=== PATIENT | female | born 1950 | race Hispanic/Latino ===

== ENCOUNTER → 2017-10-28 | Outpatient (CLI) | payer MEDICARE ==
[~2017-10-28] MED LIST: ACET-2041 PO; ACET-66 PO; AMLO5TAB2 PO; ASPI-1197 PO; BIOT10005 PO; CHOL50004 PO; ESTR1TAB17 PO; GABA-529 PO; IBUP-2071 PO; LORA10TA7 PO; LOSA100T29 PO; PANT40TA PO; POTA10TA PO; SPIR50TA3 PO
== END | disposition home or self-care (01) ==
LOC: RAH 12:38
PROVIDERS: ATTEND Internal Medicine Endocrinology, Diabetes & Metabolism
DX: E04.2 Nontoxic multinodular goiter (principal)
CPT/HCPCS: 36415; 76536; 84439; 84443

== ENCOUNTER → 2018-01-29 | Outpatient (CLI) | payer MEDICARE ==
[~2018-01-29] MED LIST changes: -SPIR50TA3 PO; +SPIR50TA5 PO
[2018-01-29 11:19] LABS: BASOPHILS % (AUTO) 0.9 % (0.0-5.0); EOSINOPHILS % (AUTO) 2.5 % (0.0-8.0); HEMATOCRIT 41.3 % (36-48); LYMPHOCYTES % (AUTO) 28.3 % (21.0-51.0); MEAN CORPUSCULAR HEMOGLOBIN 30.4 pg (27.0-33.0); MEAN CORPUSCULAR HGB CONC 33.7 g/dL (32.0-36.0); MEAN CORPUSCULAR VOLUME 90.3 fL (79-99); MONOCYTES % (AUTO) 11.3 % (3.0-13.0); PLATELET COUNT (AUTO) 222 K/uL (130-400); RED BLOOD CELL COUNT(AUTO) 4.57 MIL/uL (4.00-5.50); RED CELL DISTRIBUTION WIDTH 13.9 % (11.0-15.5); WHITE BLOOD COUNT (AUTO) 6.5 K/uL (4.8-10.8)
[2018-01-29 12:04] LABS: ALBUMIN 4.1 g/dL (3.5-5.0); BILIRUBIN,TOTAL 0.3 mg/dL (0.2-1.0); POTASSIUM 3.9 mmol/L (3.5-5.1); THYROID STIMULATING HORMONE 1.69 uIU/mL (0.36-3.74); TOTAL PROTEIN, SERUM 8.2 g/dL (6.0-8.3)
== END ==
LOC: LAB 09:59
PROVIDERS: ATTEND Internal Medicine
DX: I10 Essential (primary) hypertension (principal); E11.9 Type 2 diabetes mellitus without complications; E87.6 Hypokalemia
CPT/HCPCS: 36415; 80053; 80061; 84443; 85025

== ENCOUNTER → 2018-02-17 | Outpatient (CLI) | payer MEDICARE | END | disposition home or self-care (01) | LOC: RAH 13:22 | PROVIDERS: ATTEND Internal Medicine | DX: Z12.31 Encounter for screening mammogram for malignant neoplasm of breast (principal) | CPT/HCPCS: 77067 ==

== ENCOUNTER → 2018-03-26 | Outpatient (CLI) | payer MEDICARE | END | disposition home or self-care (01) | LOC: LAB 09:34 | PROVIDERS: ATTEND Internal Medicine | DX: R00.1 Bradycardia, unspecified (principal); M25.50 Pain in unspecified joint; M85.80 Other specified disorders of bone density and structure, unspecified site; I95.9 Hypotension, unspecified | CPT/HCPCS: 36415; 85651; 86038; 86140; 86215; 86235; 86431 ==

== ENCOUNTER → 2018-07-28 | Outpatient (CLI) | payer MEDICARE ==
[~2018-07-28] MED LIST changes: -ACET-2041 PO; -AMLO5TAB2 PO; +AMLO5TAB7 PO; -IBUP-2071 PO; +LOSA100T20 PO; -LOSA100T29 PO; +TRAM50TA4 PO
[2018-07-28 13:50] LABS: ALBUMIN 4.2 g/dL (3.5-5.0); BILIRUBIN,TOTAL 0.3 mg/dL (0.2-1.0); CREATININE 1.3 mg/dL (0.5-1.5); POTASSIUM 4.4 mmol/L (3.5-5.1); TOTAL PROTEIN, SERUM 8.4 g/dL (6.0-8.3)
[2018-07-29 09:18] LABS: VITAMIN D, 25-HYDROXY 34.1 ng/mL (30.0-100.0)
== END | disposition home or self-care (01) ==
LOC: LAB 13:00
PROVIDERS: ATTEND Internal Medicine
DX: M35.3 Polymyalgia rheumatica (principal); R20.8 Other disturbances of skin sensation; I10 Essential (primary) hypertension; K21.9 Gastro-esophageal reflux disease without esophagitis; E78.5 Hyperlipidemia, unspecified; Z79.899 Other long term (current) drug therapy
CPT/HCPCS: 36415; 80053; 82306; 82607

== ENCOUNTER → 2018-08-30 | Outpatient (CLI) | payer MEDICARE ==
[2018-08-30 11:42] LABS: CREATININE 1.2 mg/dL (0.5-1.5)
== END | disposition home or self-care (01) ==
LOC: LAB 10:47
PROVIDERS: ATTEND Internal Medicine
DX: M54.5 Low back pain (principal); Q61.9 Cystic kidney disease, unspecified; K21.9 Gastro-esophageal reflux disease without esophagitis
CPT/HCPCS: 36415; 82565; 84520

== ENCOUNTER → 2018-09-08 | Outpatient (CLI) | payer MEDICARE ==
[~2018-09-08] MED LIST changes: +IOHEXOL-350 75 ML VIAL IV ONE
== END | disposition home or self-care (01) ==
LOC: RAH 09:41
PROVIDERS: ATTEND Internal Medicine
DX: N28.1 Cyst of kidney, acquired (principal); K57.90 Diverticulosis of intestine, part unspecified, without perforation or abscess without bleeding; I70.90 Unspecified atherosclerosis; M47.895 Other spondylosis, thoracolumbar region; K21.9 Gastro-esophageal reflux disease without esophagitis
CPT/HCPCS: 74178; Q9967

== ENCOUNTER → 2018-09-29 | Outpatient (CLI) | payer MEDICARE ==
[~2018-09-29] MED LIST changes: -IOHEXOL-350 75 ML VIAL IV ONE
== END | disposition home or self-care (01) ==
LOC: RAH 14:03
PROVIDERS: ATTEND Internal Medicine
DX: I65.23 Occlusion and stenosis of bilateral carotid arteries (principal)
CPT/HCPCS: 93880

== ENCOUNTER → 2019-02-21 | Outpatient (CLI) | payer MEDICARE, OTHER ==
[~2019-02-21] MED LIST changes: -AMLO5TAB7 PO; +AMLO5TAB9 PO; -LOSA100T20 PO; +LOSA100T58 PO
== END | disposition home or self-care (01) ==
LOC: RAH 11:51
PROVIDERS: ATTEND Internal Medicine
DX: Z12.31 Encounter for screening mammogram for malignant neoplasm of breast (principal)
CPT/HCPCS: 77067

== ENCOUNTER → 2019-04-13 | Outpatient (CLI) | payer MEDICARE, OTHER ==
[2019-04-13 12:47] LABS: CREATININE 1.1 mg/dL (0.5-1.5)
== END | disposition home or self-care (01) ==
LOC: LAB 11:38
PROVIDERS: ATTEND Internal Medicine
DX: R92.2 Inconclusive mammogram (principal)
CPT/HCPCS: 36415; 82565; 84520

== ENCOUNTER → 2019-04-18 | Outpatient (CLI) | payer MEDICARE, OTHER ==
[~2019-04-18] MED LIST changes: +GADODIAMIDE 10 MMOL/20 ML VIAL IV ONE
== END | disposition home or self-care (01) ==
LOC: RAH 11:19
PROVIDERS: ATTEND Internal Medicine
DX: N60.01 Solitary cyst of right breast (principal); N60.02 Solitary cyst of left breast
CPT/HCPCS: 77049; A9579

== ENCOUNTER → 2019-05-16 | Outpatient (CLI) | payer MEDICARE, OTHER ==
[~2019-05-16] MED LIST changes: -GADODIAMIDE 10 MMOL/20 ML VIAL IV ONE
== END | disposition home or self-care (01) ==
LOC: RAH 12:36
PROVIDERS: ATTEND Internal Medicine Endocrinology, Diabetes & Metabolism
DX: E04.2 Nontoxic multinodular goiter (principal)
CPT/HCPCS: 76536

== ENCOUNTER 2019-05-31 13:00 | Inpatient (IN) | payer MEDICARE, OTHER | END 2019-06-04 16:15 | disposition home or self-care (01) | LOC: EDH 13:00 → EDHIP 18:41 → 3AH 21:56 | DX: K57.32 Diverticulitis of large intestine without perforation or abscess without bleeding (principal); E44.0 Moderate protein-calorie malnutrition; E66.01 Morbid (severe) obesity due to excess calories; I10 Essential (primary) hypertension; N28.1 Cyst of kidney, acquired ==

== ENCOUNTER → 2019-05-31 | Outpatient (CLI) | payer MEDICARE, OTHER ==
[~2019-05-31] MED LIST changes: +IOHEXOL-350 75 ML VIAL IV ONE; +LEVO500T89 PO; +METR-152 PO; +ONDA4TAB4 PO; +PANT40TA25 PO; +TRAZ-253 PO
[2019-05-31 12:51] LABS: BASOPHILS % (AUTO) 0.4 % (0.0-5.0); EOSINOPHILS % (AUTO) 0.3 % (0.0-8.0); HEMATOCRIT 38.6 % (36-48); MEAN CORPUSCULAR HEMOGLOBIN 30.7 pg (27.0-33.0); MEAN CORPUSCULAR HGB CONC 33.4 g/dL (32.0-36.0); MEAN CORPUSCULAR VOLUME 91.8 fL (79-99); MONOCYTES % (AUTO) 9.8 % (3.0-13.0); NEUTROPHILS % (AUTO) 70.5 % (40.0-77.0); PLATELET COUNT (AUTO) 199 K/uL (130-400); RED CELL DISTRIBUTION WIDTH 14.2 % (11.0-15.5); WHITE BLOOD COUNT (AUTO) 13.7 K/uL (4.8-10.8)
[2019-05-31 13:08] LABS: CREATININE 1.1 mg/dL (0.5-1.5)
[2019-05-31 13:14] LABS: ALBUMIN 3.7 g/dL (3.5-5.0); BILIRUBIN,TOTAL 0.4 mg/dL (0.2-1.0); TOTAL PROTEIN, SERUM 7.9 g/dL (6.0-8.3)
== END | disposition home or self-care (01) ==
LOC: RAH 12:15
PROVIDERS: ATTEND Internal Medicine
DX: K57.32 Diverticulitis of large intestine without perforation or abscess without bleeding (principal); N28.1 Cyst of kidney, acquired; M47.815 Spondylosis without myelopathy or radiculopathy, thoracolumbar region
CPT/HCPCS: 36415; 74018; 74178; 80053; 85025; Q9967

== ENCOUNTER 2019-08-01 09:19 | Observation (INO) | payer MEDICARE, OTHER ==
[~2019-08-01] VITALS: Ht 154.9 cm; Wt 59.9 kg
[~2019-08-01 09:19] MED LIST changes: -ACET-66 PO; -IOHEXOL-350 75 ML VIAL IV ONE; -LORA10TA7 PO; -PANT40TA PO
[2019-08-01 10:40] LABS: BASOPHILS % (AUTO) 0.6 % (0.0-5.0); EOSINOPHILS % (AUTO) 0.3 % (0.0-8.0); HEMATOCRIT 41.4 % (36-48); LYMPHOCYTES % (AUTO) 16.2 % (21.0-51.0); MEAN CORPUSCULAR HEMOGLOBIN 31.3 pg (27.0-33.0); MEAN CORPUSCULAR HGB CONC 33.9 g/dL (32.0-36.0); MEAN CORPUSCULAR VOLUME 92.4 fL (79-99); MONOCYTES % (AUTO) 8.5 % (3.0-13.0); NEUTROPHILS % (AUTO) 74.4 % (40.0-77.0); PLATELET COUNT (AUTO) 200 K/uL (130-400); RED BLOOD CELL COUNT(AUTO) 4.48 MIL/uL (4.00-5.50); RED CELL DISTRIBUTION WIDTH 14.4 % (11.0-15.5); WHITE BLOOD COUNT (AUTO) 9.3 K/uL (4.8-10.8)
[2019-08-01 10:42] LABS: APPEARANCE,URINE Clear (CLEAR); BILIRUBIN,URINE Negative (NEGATIVE); COLOR,URINE Yellow (YELLOW); GLUCOSE, URINE (UA) Negative (NEGATIVE); KETONES,URINE Negative (NEGATIVE); LEUKOCYTE ESTERASE ,URINE Trace (NEGATIVE); NITRATE,URINE Negative (NEGATIVE); OCCULT BLOOD,URINE Negative (NEGATIVE); PH,URINE 5.5 (5.0-8.0); PROTEIN,URINE Negative (NEGATIVE)
[2019-08-01 10:54] LABS: CREATININE 1.2 mg/dL (0.5-1.5); POTASSIUM 4.4 mmol/L (3.5-5.1)
[2019-08-01 10:59] LABS: ALBUMIN 3.9 g/dL (3.5-5.0); BILIRUBIN,TOTAL 0.4 mg/dL (0.2-1.0); TOTAL PROTEIN, SERUM 8.5 g/dL (6.0-8.3)
[2019-08-01 11:21] LABS: BACTERIA,URINE Rare /HPF (None Seen); MUCUS,URINE Rare LPF (None Seen); RBC,URINE 0-1 /HPF (0-1); SQUAMOUS EPITHELIAL CELL,UR Rare /HPF (0-2); WBC,URINE 0-1 /HPF (0-1)
[2019-08-01] MEDS ORDERED: SODIUM CHLORIDE 0.9% 1000ML 1,000 ML IV ONE ×2 (12:22→14:22)
[2019-08-01] MEDS ORDERED: LEVOFLOXACIN 500 MG/D5W 100 ML 100 ML ONE (12:35)
[2019-08-01] MEDS ORDERED: METRONIDAZOLE 500MG/100ML BAG 100 ML ONE (12:35)
[2019-08-01 12:51] LABS: INR 0.9 (0.85-1.15); PARTIAL THROMBOPLASTIN TIME 26.6 SEC (26.3-35.5)
[2019-08-01 13:11] LABS: PROTHROMBIN TIME 9.3 SEC (9.6-11.6)
[2019-08-01] MEDS: ZOSYN 3.375GM+NS 50ML 50 ML IV SCH ×2 (13:30→20:34)
[2019-08-01] MEDS ORDERED: ACETAMINOPHEN 325 MG TAB PO PRN (13:30)
[2019-08-01] MEDS ORDERED: ONDANSETRON HCL 4 MG/2 ML VIAL IVP PRN (13:30)
[2019-08-01 15:15] VITALS: BP 122/54
[2019-08-01] MEDS ORDERED: PANT20TA12 PO (16:16)
[2019-08-01] MEDS ORDERED: MELA10TA3 PO (16:16)
[2019-08-01] MEDS ORDERED: ESTR1TAB17 PO (16:16)
[2019-08-01] MEDS ORDERED: AMLO10TA7 PO (16:16)
[2019-08-01] MEDS ORDERED: GABA-531 PO (16:16)
[2019-08-01] MEDS: MORPHINE SULFATE 2 MG/ML 1ML SYG IVP PRN ×2 (18:08→20:14)
[2019-08-01 19:20] VITALS: BP 143/50
[2019-08-01] MEDS: SODIUM CHLORIDE 0.9% 1000ML 1,000 ML IV SCH (20:15)
[2019-08-01] MEDS ORDERED: MORPHINE SULFATE 4 MG/1ML SYG IV PRN (20:15)
[2019-08-01] MEDS ORDERED: MORPHINE SULFATE 4 MG/1ML SYG IVP PRN (20:15)
--- NOTE | 2019-08-01 21:00 | NUR ---
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
[2019-08-01 23:25] VITALS: BP 116/60
--- NOTE | 2019-08-01 23:36 | NUR ---
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
[2019-08-01] MEDS ORDERED: HYDROMORPHONE HCL 2 MG/ML VIAL IVP PRN (23:45)
[2019-08-02] MEDS ORDERED: HYDROMORPHONE HCL 0.5 MG/0.5 ML ML ONE (00:06)
[2019-08-02] MEDS: SODIUM CHLORIDE 0.9% 1000ML 1,000 ML IV SCH (00:16)
[2019-08-02 03:25] VITALS: BP 141/57
--- NOTE | 2019-08-02 03:32 | NUR ---
RELIEF Pt vebalized relief of pain with Dilaudid IV.
[2019-08-02] MEDS: ZOSYN 3.375GM+NS 50ML 50 ML IV SCH ×2 (05:44→13:38)
[2019-08-02 05:47] LABS: BASOPHILS % (AUTO) 0.6 % (0.0-5.0); EOSINOPHILS % (AUTO) 0.9 % (0.0-8.0); HEMATOCRIT 35.2 % (36-48); MEAN CORPUSCULAR HEMOGLOBIN 30.9 pg (27.0-33.0); MEAN CORPUSCULAR HGB CONC 33.2 g/dL (32.0-36.0); MEAN CORPUSCULAR VOLUME 93.1 fL (79-99); MONOCYTES % (AUTO) 11.7 % (3.0-13.0); NEUTROPHILS % (AUTO) 55.8 % (40.0-77.0); NUCLEATED RED BLOOD CELLS 0.1 % (0.0-0.19); PLATELET COUNT (AUTO) 181 K/uL (130-400); RED BLOOD CELL COUNT(AUTO) 3.78 MIL/uL (4.00-5.50); RED CELL DISTRIBUTION WIDTH 14.2 % (11.0-15.5); WHITE BLOOD COUNT (AUTO) 5.6 K/uL (4.8-10.8)
[2019-08-02 07:06] LABS: ERYTHROCYTE SEDIMENTATION RATE 49 MM/HR (0-30)
[2019-08-02 07:30] VITALS: BP 120/70
--- NOTE | 2019-08-02 08:00 | NUR ---
AM SHIFT ASSESSMENT. DENIES ABDOMINAL DISCOMFORT AT THIS TIME.
[2019-08-02] MEDS ORDERED: AMOX-429 PO (09:12)
[2019-08-02] MEDS ORDERED: TRAMADOL HCL 50 MG TABLET PO PRN (09:15)
--- NOTE | 2019-08-02 09:21 | NUR ---
DR. WASHBURN IN TO SEE PT. POSS. DISCHARGE THIS EVENING IF TOLERATED LIQUID DIET.
[2019-08-02 11:00] VITALS: BP 115/59
--- NOTE | 2019-08-02 14:00 | NUR ---
HAS BEEN UP WALKING AND STATES PASSING FLATUS AND ACTUALLY FEELS MUCH BETTER
--- NOTE | 2019-08-02 17:45 | NUR ---
DISCHARGED NOW USING TEACH BACK. TOLERATED LIQUID DIET WELL. 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 ALREADY HAS TRAMADOL AT HOME IF SHE NEEDS IT. VERBALIZED UNDERSTANDING OF ALL INST. GIVEN.
== END 2019-08-02 18:00 | disposition home or self-care (01) ==
LOC: EDH 09:19 → EDHIP 12:59 → 3CH 15:23
PROVIDERS: ADMIT Internal Medicine; ATTEND Internal Medicine
DX: K57.32 Diverticulitis of large intestine without perforation or abscess without bleeding (principal); I10 Essential (primary) hypertension; R94.31 Abnormal electrocardiogram [ECG] [EKG]; Z90.710 Acquired absence of both cervix and uterus; Z79.82 Long term (current) use of aspirin; Z79.899 Other long term (current) drug therapy; Z88.2 Allergy status to sulfonamides; Z88.8 Allergy status to other drugs, medicaments and biological substances; Z91.048 Other nonmedicinal substance allergy status
CPT/HCPCS: 36415 ×2; 71045; 74176; 80053; 81001; 82150; 82550; 83690; 84145 ×2; 84484; 85025 ×2; 85610; 85651; 85730; 86140; 93005; 96365; 96366 ×2; 96375; 96376; 99284; G0378 ×29; J1170; J1956; J2405; J2543 ×3; J3490; J7030 ×3

== ENCOUNTER → 2019-08-17 | Outpatient (CLI) | payer MEDICARE, OTHER ==
[~2019-08-17] MED LIST changes: +AMLO10TA7 PO; -AMLO5TAB9 PO; +AMOX-429 PO; -BIOT10005 PO; -GABA-529 PO; +GABA-531 PO; -LEVO500T89 PO; +MELA10TA3 PO; -METR-152 PO; -ONDA4TAB4 PO; +PANT20TA12 PO; -PANT40TA25 PO
== END | disposition home or self-care (01) ==
LOC: RAH 09:05
PROVIDERS: ATTEND Surgery
DX: N28.1 Cyst of kidney, acquired (principal)
CPT/HCPCS: 76770

== ENCOUNTER → 2019-09-22 | Outpatient (CLI) | payer MEDICARE, OTHER ==
[~2019-09-22] MED LIST changes: +IOHEXOL-350 75 ML VIAL IV ONE
== END | disposition home or self-care (01) ==
LOC: RAH 16:08
PROVIDERS: ATTEND Internal Medicine
DX: K65.1 Peritoneal abscess (principal)
CPT/HCPCS: 74177; Q9967

== ENCOUNTER → 2019-12-05 | Outpatient (CLI) | payer MEDICARE ==
[~2019-12-05] MED LIST changes: +IOHEXOL 350 MG/ML 100ML INFUS..BTL IV ONE; -IOHEXOL-350 75 ML VIAL IV ONE
== END | disposition home or self-care (01) ==
LOC: RAH 07:57
PROVIDERS: ATTEND Surgery
DX: N28.1 Cyst of kidney, acquired (principal); K57.90 Diverticulosis of intestine, part unspecified, without perforation or abscess without bleeding; J98.11 Atelectasis; Z90.49 Acquired absence of other specified parts of digestive tract; Z90.710 Acquired absence of both cervix and uterus; Z93.3 Colostomy status
CPT/HCPCS: 74178; Q9967

== ENCOUNTER → 2020-05-14 | Outpatient (CLI) | payer MEDICARE ==
[~2020-05-14] MED LIST changes: -IOHEXOL 350 MG/ML 100ML INFUS..BTL IV ONE
== END | disposition home or self-care (01) ==
LOC: RAH 10:37
PROVIDERS: ATTEND Internal Medicine Endocrinology, Diabetes & Metabolism
DX: Z12.31 Encounter for screening mammogram for malignant neoplasm of breast (principal); E04.2 Nontoxic multinodular goiter; N64.89 Other specified disorders of breast
CPT/HCPCS: 76536; 77067

== ENCOUNTER → 2020-12-26 | Outpatient (CLI) | payer MEDICARE ==
[~2020-12-26] MED LIST changes: +AMLO-258 PO; -AMLO10TA7 PO; -PANT20TA12 PO; +PANT20TA18 PO
== END | disposition home or self-care (01) ==
LOC: RAH 13:29
PROVIDERS: ATTEND Internal Medicine
DX: R52 Pain, unspecified (principal); W19.XXXA Unspecified fall, initial encounter
CPT/HCPCS: 72170; 72220

== ENCOUNTER → 2020-12-31 | Outpatient (CLI) | payer MEDICARE, OTHER | END | disposition home or self-care (01) | LOC: RAH 13:46 | PROVIDERS: ATTEND Orthopaedic Surgery | DX: M75.101 Unspecified rotator cuff tear or rupture of right shoulder, not specified as traumatic (principal); M25.511 Pain in right shoulder | CPT/HCPCS: 73221 ==

== ENCOUNTER → 2021-05-20 | Outpatient (CLI) | payer MEDICARE, OTHER | END | disposition home or self-care (01) | LOC: RAH 08:58 | PROVIDERS: ATTEND Surgery | DX: Z93.3 Colostomy status (principal) | CPT/HCPCS: 74270 ==

== ENCOUNTER → 2022-01-15 | Outpatient (CLI) | payer MEDICARE, OTHER | END | disposition home or self-care (01) | LOC: RAH 11:26 | PROVIDERS: ATTEND Internal Medicine | DX: S80.02XA Contusion of left knee, initial encounter (principal); M17.12 Unilateral primary osteoarthritis, left knee; M25.562 Pain in left knee; X58.XXXA Exposure to other specified factors, initial encounter; Y93.89 Activity, other specified; Y92.89 Other specified places as the place of occurrence of the external cause; Y99.8 Other external cause status | CPT/HCPCS: 73560 ==

== ENCOUNTER → 2022-02-11 | Outpatient (CLI) | payer MEDICARE, OTHER | LOC: RAH 13:44 | PROVIDERS: ATTEND Internal Medicine | DX: M25.511 Pain in right shoulder (principal); M25.512 Pain in left shoulder | CPT/HCPCS: 73030; 73080 ==

== ENCOUNTER → 2022-05-20 | Outpatient (CLI) | payer MEDICARE, OTHER ==
[2022-05-20 12:58] LABS: T4 (THYROXINE) 9.3 ug/dL (4.7-13.3); THYROID STIMULATING HORMONE 1.47 uIU/mL (0.36-3.74)
== END | disposition home or self-care (01) ==
LOC: RAH 11:50
PROVIDERS: ATTEND Internal Medicine Endocrinology, Diabetes & Metabolism
DX: E04.2 Nontoxic multinodular goiter (principal)
CPT/HCPCS: 36415; 76536; 84436; 84443

== ENCOUNTER 2023-05-04 05:51 | Observation (INO) | payer MEDICARE, OTHER ==
[2023-05-01 12:54] LABS: BASOPHILS % (AUTO) 0.5 % (0.0-5.0); EOSINOPHILS % (AUTO) 0.8 % (0.0-8.0); HEMATOCRIT 45.1 % (36-48); MEAN CORPUSCULAR HEMOGLOBIN 29.6 pg (27.0-33.0); MEAN CORPUSCULAR HGB CONC 31.9 g/dL (32.0-36.0); MEAN CORPUSCULAR VOLUME 92.6 fL (79-99); MONOCYTES % (AUTO) 10.3 % (3.0-13.0); NEUTROPHILS % (AUTO) 55.1 % (40.0-77.0); PLATELET COUNT (AUTO) 187 K/uL (130-400); RED BLOOD CELL COUNT(AUTO) 4.87 MIL/uL (4.00-5.50); RED CELL DISTRIBUTION WIDTH 13.8 % (11.0-15.5); WHITE BLOOD COUNT (AUTO) 6.6 K/uL (4.8-10.8)
[2023-05-01 12:56] LABS: APPEARANCE,URINE CLEAR (CLEAR); BILIRUBIN,URINE NEGATIVE (NEGATIVE); COLOR,URINE YELLOW (YELLOW); GLUCOSE, URINE (UA) NEGATIVE (NEGATIVE); KETONES,URINE NEGATIVE (NEGATIVE); LEUKOCYTE ESTERASE ,URINE NEGATIVE Leu/uL (NEGATIVE); NITRATE,URINE NEGATIVE (NEGATIVE); OCCULT BLOOD,URINE NEGATIVE (NEGATIVE); PROTEIN,URINE 20 mg/dL (NEGATIVE); UROBILINOGEN,URINE 0.2 mg/dL (0.2-1.0)
[2023-05-01 12:58] LABS: MUCUS,URINE RARE LPF (None Seen); RBC,URINE 0-1 /HPF (0-1); SQUAMOUS EPITHELIAL CELL,UR RARE /HPF (0-2)
[2023-05-01 13:07] LABS: ALBUMIN 3.9 g/dL (3.5-5.0); CARBON DIOXIDE 27 mmol/L (21-32); CHLORIDE 101 mmol/L (101-111); CREATININE 0.8 mg/dL (0.5-1.5); CRP QUANTITATIVE < 2.00 mg/L (0.00-9.0); GLOMERULAR FILTR. RATE CALC 77 mL/min (>90); GLUCOSE,RANDOM 100 mg/dL (70-105); POTASSIUM 3.5 mmol/L (3.5-5.1); SODIUM SERUM 139 mmol/L (136-145); UREA NITROGEN, BLOOD 11 mg/dL (7-18)
[2023-05-01 13:10] LABS: INR 0.93 (0.85-1.15); PROTHROMBIN TIME 10.1 SEC (9.6-11.6)
[2023-05-01 13:11] LABS: PARTIAL THROMBOPLASTIN TIME 27.2 SEC (26.3-35.5)
[2023-05-01 13:28] VITALS: BP 163/73; PULSE 73; RESP 17
[2023-05-04] VITALS (24 sets, daily range): BP systolic 97–162; BP diastolic 50–96; PULSE 71–107; RESP 12–20; O2SAT 97
[~2023-05-04] VITALS: Ht 165.1 cm; Wt 61.9 kg
[~2023-05-04 05:51] MED LIST changes: -AMOX-429 PO; -ASPI-1197 PO; +ATOR10TA69 PO; +CEPH500C2 PO; -CHOL50004 PO; +DULO30CA52 PO; +GABA-529 PO; -GABA-531 PO; -LOSA100T58 PO; +LOSA100T59 PO; +MONT-39 PO; -POTA10TA PO; -SPIR50TA5 PO; -TRAM50TA4 PO; +TRAZ-187 PO; -TRAZ-253 PO
[2023-05-04] MEDS ORDERED: CEFAZOLIN SODIUM 2 GM VIAL IVPB PRN (06:00)
[2023-05-04] MEDS ORDERED: LACTATED RINGERS 1000ML 1,000 ML IV ONE (06:21)
[2023-05-04] MEDS ORDERED: TRANEXAMIC ACID 1000MG/10ML ONE (06:52)
[2023-05-04] MEDS ORDERED: KETOROLAC 30MG VIAL (30MG/ML) ONE (06:52)
[2023-05-04] MEDS ORDERED: ROPIVACAINE 0.5% 5MG/ML 30ML IJ ONE ×3 (06:53→08:39)
[2023-05-04] MEDS ORDERED: SUCCINYLCHOLINE 200MG/10ML SYR ONE (06:58)
[2023-05-04] MEDS ORDERED: ONDANSETRON 4MG INJ ONE (06:58)
[2023-05-04] MEDS ORDERED: LIDOCAINE PF 100MG/5ML (2%) SYRINGE 5ML ONE (06:58)
[2023-05-04] MEDS ORDERED: DEXAMETHASONE SOD PHOSPHATE 10MG/ML 1ML VIAL ONE (06:59)
[2023-05-04] MEDS ORDERED: MIDAZOLAM HCL 1 MG/ML 2ML VIAL ONE (06:59)
[2023-05-04] MEDS ORDERED: PROPOFOL 10 MG/ML 20ML VIAL IV ONE (06:59)
[2023-05-04] MEDS ORDERED: ROCURONIUM 10MG/1ML SYR 10 MG/ML ML ONE (07:00)
[2023-05-04] MEDS ORDERED: FENTANYL CITRATE PF 50 MCG/1 ML 2ML VIAL ONE ×4 (07:00→10:23)
[2023-05-04] MEDS ORDERED: KETOROLAC 30MG VIAL (30MG/ML) IVP ONE (07:30)
[2023-05-04] MEDS ORDERED: TRANEXAMIC ACID 1000MG/10ML IV ONE (07:36)
[2023-05-04] MEDS ORDERED: GLYCOPYRROLATE 1 MG/5 ML SYRINGE ONE (09:08)
[2023-05-04] MEDS ORDERED: NEOSTIGMINE 5MG/5ML SYR IV ONE (09:08)
[2023-05-04] MEDS ORDERED: DiphenhydrAMINE HCL 50 MG/ML VIAL IVP PRN (09:30)
[2023-05-04] MEDS ORDERED: POTASSIUM CHLORIDE 20MEQ/100ML 100 ML IV PRN (09:30)
[2023-05-04] MEDS ORDERED: POTASSIUM CHLORIDE 10% ELIXIR 20 MEQ/15 ML UDCUP PO PRN (09:30)
[2023-05-04] MEDS ORDERED: FERROUS FUMARATE 324 MG TABLET PO PRN (09:30)
[2023-05-04] MEDS ORDERED: ONDANSETRON 4MG INJ IVP PRN (09:30)
[2023-05-04] MEDS ORDERED: CYCLOBENZAPRINE HCL 10 MG TABLET PO PRN (09:30)
[2023-05-04] MEDS: 0.9%NACL 1000ML 1,000 ML IV SCH ×2 (09:30→22:40)
[2023-05-04] MEDS ORDERED: CALCIUM CARB 500MG PO PRN (09:30)
[2023-05-04] MEDS ORDERED: MORPHINE 2 MG SYG ONE ×2 (10:03→10:12)
[2023-05-04] MEDS: KETOROLAC 15MG/ML VIAL (15MG/ML) IV SCH ×2 (10:21→17:33)
[2023-05-04] MEDS: HYDROCODONE/ACETAMINOPHEN 5/325 MG TAB PO PRN ×2 (12:53→22:49)
[2023-05-04] MEDS: GABAPENTIN 100 MG CAPSULE PO SCH ×2 (14:21→21:22)
[2023-05-04] MEDS: CEFAZOLIN SODIUM 2 GM VIAL IVPB SCH ×2 (14:21→22:41)
[2023-05-04] MEDS: TRAMADOL HCL 50 MG TABLET PO PRN (15:22)
[2023-05-04] MEDS ORDERED: NON-FORMULARY MEDICATION 1 EACH (Pantoprazole Sodium 20 MG) PO SCH (21:00)
[2023-05-04] MEDS: MELATONIN 5 MG TABLET PO SCH (21:00)
[2023-05-04] MEDS ORDERED: GABAPENTIN 100 MG CAPSULE PO SCH (21:00)
[2023-05-04] MEDS ORDERED: MELATONIN 10 MG PO SCH (21:00)
[2023-05-04] MEDS ORDERED: NON-FORMULARY MEDICATION 1 EACH (Amlodipine Besylate 10 MG) PO SCH (21:00)
[2023-05-04] MEDS: ATORVASTATIN 10 MG TABLET PO SCH (21:19)
[2023-05-04] MEDS: DOCUSATE SODIUM 100 MG CAP PO SCH (21:19)
[2023-05-04] MEDS: MONTELUKAST SODIUM 10 MG TAB PO SCH (21:19)
[2023-05-04] MEDS: TRAZODONE HCL 100 MG TABLET PO SCH (21:19)
[2023-05-05] VITALS: BP 139/62; PULSE 98; RESP 18
[2023-05-05] MEDS: KETOROLAC 15MG/ML VIAL (15MG/ML) IV SCH (01:04)
[2023-05-05 04:00] VITALS: BP 150/72; PULSE 90; RESP 18
[2023-05-05 04:55] LABS: HEMATOCRIT 34.7 % (36-48); MEAN CORPUSCULAR HEMOGLOBIN 29.4 pg (27.0-33.0); RED BLOOD CELL COUNT(AUTO) 3.77 MIL/uL (4.00-5.50); RED CELL DISTRIBUTION WIDTH 13.7 % (11.0-15.5); WHITE BLOOD COUNT (AUTO) 12.6 K/uL (4.8-10.8)
[2023-05-05 05:15] LABS: CREATININE 0.9 mg/dL (0.5-1.5); POTASSIUM 3.4 mmol/L (3.5-5.1)
[2023-05-05] MEDS: 0.9%NACL 1000ML 1,000 ML IV SCH (05:30)
[2023-05-05] MEDS: HYDROCODONE/ACETAMINOPHEN 5/325 MG TAB PO PRN ×2 (05:46→12:59)
[2023-05-05 08:00] VITALS: BP 155/73; PULSE 99; RESP 20; O2SAT 94
[2023-05-05] MEDS: ESTRADIOL 0.5 MG TABLET PO SCH (08:08)
[2023-05-05] MEDS: LOSARTAN 100 MG TABLET PO SCH (08:08)
[2023-05-05] MEDS: POLYETHYLENE GLYCOL 3350 17 GM POWD.PACK PO SCH (08:08)
[2023-05-05] MEDS: DULOXETINE HCL 30 MG CAP PO SCH (08:08)
[2023-05-05] MEDS: KCL 20 MEQ ERTAB PO PRN ×2 (08:09→12:59)
[2023-05-05] MEDS: GABAPENTIN 100 MG CAPSULE PO SCH ×3 (08:09→20:34)
[2023-05-05] MEDS: PANTOPRAZOLE 40 MG TAB DR PO SCH (08:09)
[2023-05-05] MEDS: ASPIRIN 325MG TAB PO SCH (08:09)
[2023-05-05] MEDS: TRAMADOL HCL 50 MG TABLET PO PRN (08:10)
[2023-05-05] MEDS: DOCUSATE SODIUM 100 MG CAP PO SCH ×2 (08:10→20:33)
[2023-05-05] MEDS ORDERED: NON-FORMULARY MEDICATION 1 EACH (Estradiol 1 MG) PO SCH (09:00)
[2023-05-05 12:00] VITALS: BP 130/82; PULSE 82; RESP 20
[2023-05-05] MEDS: KETOROLAC 15MG/ML VIAL (15MG/ML) IV PRN (14:25)
[2023-05-05 20:00] VITALS: BP 148/64; PULSE 73; RESP 18
[2023-05-05] MEDS: ATORVASTATIN 10 MG TABLET PO SCH (20:33)
[2023-05-05] MEDS: TRAZODONE HCL 100 MG TABLET PO SCH (20:33)
[2023-05-05] MEDS: MELATONIN 5 MG TABLET PO SCH (20:33)
[2023-05-05] MEDS: MONTELUKAST SODIUM 10 MG TAB PO SCH (20:34)
[2023-05-05] MEDS ORDERED: AMLODIPINE 5 MG TAB PO SCH (21:00)
[2023-05-06] VITALS: BP 135/63; PULSE 85; RESP 18
[2023-05-06] MEDS: HYDROCODONE/ACETAMINOPHEN 5/325 MG TAB PO PRN ×3 (02:40→16:50)
[2023-05-06 04:00] VITALS: BP 140/67; PULSE 96; RESP 18
[2023-05-06] MEDS: KETOROLAC 15MG/ML VIAL (15MG/ML) IV PRN ×2 (07:56→13:08)
[2023-05-06 08:00] VITALS: BP 118/61; PULSE 86; RESP 17
[2023-05-06] MEDS: ASPIRIN 325MG TAB PO SCH (08:57)
[2023-05-06] MEDS: POLYETHYLENE GLYCOL 3350 17 GM POWD.PACK PO SCH (08:57)
[2023-05-06] MEDS: ESTRADIOL 0.5 MG TABLET PO SCH (08:57)
[2023-05-06] MEDS: DULOXETINE HCL 30 MG CAP PO SCH (08:57)
[2023-05-06] MEDS: DOCUSATE SODIUM 100 MG CAP PO SCH (08:57)
[2023-05-06] MEDS: PANTOPRAZOLE 40 MG TAB DR PO SCH (08:57)
[2023-05-06] MEDS: LOSARTAN 100 MG TABLET PO SCH (08:57)
[2023-05-06] MEDS: GABAPENTIN 100 MG CAPSULE PO SCH ×2 (08:58→15:24)
[2023-05-06 12:00] VITALS: BP 114/70; PULSE 87; RESP 17
[2023-05-06] MEDS ORDERED: HYDR-4060 PO (14:35)
[2023-05-06] MEDS ORDERED: CYCL-309 PO (14:35)
[2023-05-06] MEDS ORDERED: ASPI-1026 PO (14:35)
[2023-05-06] MEDS ORDERED: GABA100C PO (14:35)
[2023-05-06] MEDS ORDERED: DOCU-116 PO (14:35)
[2023-05-06 16:00] VITALS: BP 116/74; PULSE 88; RESP 16
[2023-05-07] MEDS ORDERED: BISACODYL 10 MG SUPP.RECT RC PRN (09:30)
== END 2023-05-06 17:32 | disposition home or self-care (01) ==
LOC: DAH 05:51 → DAHIP 05:52 → DAH 05:52 → 4DH 11:00
PROVIDERS: ADMIT Student in an Organized Health Care Education/Training Program; ATTEND Student in an Organized Health Care Education/Training Program
DX: M17.12 Unilateral primary osteoarthritis, left knee (principal); Z20.822 Contact with and (suspected) exposure to COVID-19; D62 Acute posthemorrhagic anemia; E87.6 Hypokalemia; F32.A Depression, unspecified; E78.5 Hyperlipidemia, unspecified; K21.9 Gastro-esophageal reflux disease without esophagitis; J45.909 Unspecified asthma, uncomplicated; I10 Essential (primary) hypertension; Z90.710 Acquired absence of both cervix and uterus; Z79.899 Other long term (current) drug therapy
CPT/HCPCS: 82040; 80048 ×2; 85025; 85610; 85730; 87088; 84134; 86140; 87426; 81001; 36415 ×2; 87641; 64447; 27447; 96376 ×3; 96365; 96366; 96375; 73560; 85027; 97039 ×2; 97116 ×4; 97530 ×2; G0378 ×54; A4663; A4215 ×2; J7120; J3010 ×4; J3490 ×3; J0330; J1100; J2710; J2270 ×2; J2001; J2250; J2704; J2405; J1885 ×8; J2795 ×3; J0690 ×3; C1713 ×2; G0168; C1776 ×2; A4649 ×3; A4930; A6255; A5120; A4223; A4222; A4221

== ENCOUNTER → 2023-07-30 | Outpatient (CLI) | payer MEDICARE, OTHER ==
[~2023-07-30] MED LIST changes: +ASPI-1026 PO; +CYCL-309 PO; +DOCU-116 PO; -GABA-529 PO; +GABA100C PO; +HYDR-4060 PO
== END | disposition home or self-care (01) ==
LOC: RAH 11:11
PROVIDERS: ATTEND Internal Medicine
DX: Z12.31 Encounter for screening mammogram for malignant neoplasm of breast (principal); N63.25 Unspecified lump in the left breast, overlapping quadrants
CPT/HCPCS: 77067

== ENCOUNTER → 2024-06-30 | Outpatient (CLI) | payer OTHER ==
[~2024-06-30] MED LIST changes: +AMLO-257 PO; -AMLO-258 PO; -ASPI-1026 PO; +ASPI-891 PO; -CEPH500C2 PO; +GABA300C PO; -MELA10TA3 PO; +TRAZ-185 PO; -TRAZ-187 PO
== END | disposition home or self-care (01) ==
LOC: RAH 10:44
PROVIDERS: ATTEND Internal Medicine Endocrinology, Diabetes & Metabolism
DX: E04.2 Nontoxic multinodular goiter (principal)
CPT/HCPCS: 76536

== ENCOUNTER → 2024-08-25 | Outpatient (CLI) | payer OTHER ==
--- NOTE | 2024-08-25 14:25 | HMCIMG ---
US BREAST COMPLETE UNILATERAL REASON: SOLITARY CYST COMPARISON: 08/19/2023 TECHNIQUE: Left breast ultrasound was performed and compared to prior study. FINDINGS: There are 3 cysts present in the left breast. Largest is 1 cm in the 3:00 position, there is an 8 mm cyst at 1:00 and a 6 mm cyst at 9:00. Previous exam showed 5 cysts, all small as well. There are no solid nodules. There is no architectural distortion or acoustical shadowing. There are some normal-appearing lymph nodes in the axilla. IMPRESSION: 1. 3 small cysts in the left breast, largest is 1 cm. 2. No suspicious focal lesions identified.
== END | disposition home or self-care (01) ==
LOC: RAH 12:53
PROVIDERS: ATTEND Internal Medicine
DX: N60.02 Solitary cyst of left breast (principal)
CPT/HCPCS: 76641